=== PATIENT | female | born 1970 | race Caucasian/White ===

== ENCOUNTER → 2017-03-27 | Outpatient (CLI) | payer MEDICAID | LOC: FIMAGING 09:38 | PROVIDERS: ATTEND Family Medicine | DX: R19.00 Intra-abdominal and pelvic swelling, mass and lump, unspecified site (principal); N83.292 Other ovarian cyst, left side ==

== ENCOUNTER 2017-04-12 06:41 | Day surgery (SDC) | payer MEDICAID ==
--- NOTE | 2017-04-12 02:18 | GHP ---
[f rep st] PREOP HISTORY AND PHYSICAL REASON FOR ADMISSION: Primary hyperparathyroidism. HISTORY OF PRESENT ILLNESS: 46-year-old female with primary hyperparathyroidism. She is being admitted today for a parathyroidectomy. PAST MEDICAL HISTORY: Nephrolithiasis. PAST SURGICAL HISTORY: Benign ovarian cystectomy, pediatric bladder reconstruction. MEDICATIONS: Probiotics, apple cider vinegar, naturopathic "Review Coordinator" for kidneys. ALLERGIES: No known drug allergies. SOCIAL HISTORY: Three cigarettes per day. Occasional alcohol. 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 FAMILY HISTORY: Noncontributory. PHYSICAL EXAM: VITAL SIGNS: Afebrile, blood pressure 100/72, pulse 80. GENERAL: The patient is alert, appropriate, comfortable. EYES: Anicteric. LYMPHATIC: No cervical or supraclavicular lymphadenopathy. HEART: Regular. LUNGS: Clear. NECK: Nontender, without appreciable mass or adenopathy. ABDOMEN: Soft, nontender, nondistended. EXTREMITIES: Unremarkable. NEUROLOGIC: Unremarkable. LABORATORY DATA: Calcium 13.6, PTH 578, TSH 1.3. Vitamin D 43, creatinine 0.8. IMPRESSION: Primary hyperparathyroidism. Suspect right lower neck adenoma. PLAN: Parathyroidectomy with intraoperative PTH monitoring. Surgical risks and benefits were explained to the patient in detail, including bleeding, infection, persistent and recurrent hyperparathyroidism, hypoparathyroidism, recurrent laryngeal nerve injury, indications for 4-gland resection, hungry bone syndrome, and potential malignant findings given the large tumor size noted on preoperative ultrasound and extreme calcium and PTH elevation. All questions were answered. She desires to proceed. /[id number]/MODL MTDD
[~2017-04-12 06:41] MED LIST: LR 1,000 ML IV ONE; NS 1,000 ML IV ONE
[2017-04-12] MEDS ORDERED: BUPIVACAINE/EPI 0.5% 30 ML SDV ONE (07:12)
--- NOTE | 2017-04-12 07:13 | PDANEPAE ---
ANE History of Present Illness 46 year old female presents for parathyroidectomy. ANE Past Medical History - Cardiovascular History Hx Hypertension: No Hx Arrhythmias: No Hx Chest Pain: No Hx Coronary Artery / Peripheral Vascular Disease: No Hx CHF / Valvular Disease: No Hx Palpitations: No - Pulmonary History Hx COPD: No Hx Asthma/Reactive Airway Disease: No Hx Recent Upper Respiratory Infection: No Hx Oxygen in Use at Home: No Hx Sleep Apnea: No Sleep Apnea Screening Result - Last Documented: Negative - Neurologic History Hx Cerebrovascular Accident: No Hx Seizures: No Hx Dementia: No - Endocrine History Hx Diabetes: No Hypothyroid: No Hyperthyroid: No Obesity: no Endocrine History Comment: hyperparathyroidism - Renal History Hx Renal Disorders: Yes Renal History Comment: passing blood in urine - Liver History Hx Hepatic Disorders: No - Neurological & Psychiatric Hx Hx Neurological and Psychiatric Disorders: No - Cancer History Hx Cancer: No - Congenital Disorder History Hx Congenital Disorders: No - GI History GERD: no Hx Gastrointestinal Disorders: No - Other Health History Other Health History: none - Chronic Pain History Chronic Pain: No - Surgical History Prior Surgeries: . justine ANE Review of Systems - Exercise capacity Exercise capacity: >=4 METS METS (RN): 5 METS ANE Patient History - Allergies Allergies/Adverse Reactions: No Known Allergies Allergy (Verified 04/11/17 18:44) - Home Medications Home medications: home medication list seen and reviewed Home Medications: NK [No Known Home Meds] 02/02/16 [Last Taken Unknown] - NPO status NPO Status: no food or drink >8 hours NPO Since - Liquids (Date): 04/12/17 NPO Since - Liquids (Time): 04:30 NPO Since - Solids (Date): 04/11/17 NPO Since - Solids (Time): 21:00 - Anes Hx Anes Hx: no prior problems - Smoking Hx Smoking Status: Light smoker Marijuana use: Yes - Alcohol Use Alcohol Use: Rarely - Family Anes Hx Family Anes Hx: neg - N/A ANE Labs/Vital Signs - Vital Signs Vital Signs: reviewed preoperatively; see RN documention for details Blood Pressure: 98/66 Heart Rate: 74 Respiratory Rate: 16 O2 Sat (%): 98 Height: 157.48 cm Weight: 56.699 kg ANE Physical Exam - Airway Neck exam: decreased ROM (limited extension) Mallampati Score: Class 3 (limited by small mouth opening) Mouth exam: small mouth opening - Pulmonary Pulmonary: no respiratory distress - Cardiovascular Cardiovascular: regular rate and rhythym - ASA Status ASA Status: II ANE Anesthesia Plan Anesthesia Plan: general endotracheal anesthesia Total IV Anesthesia: No
[2017-04-12] MEDS ORDERED: MIDAZOLAM 2 MG/2 ML VIAL IVP ONE (07:30)
[2017-04-12] MEDS ORDERED: fentaNYL 100 MCG/2 ML INJ ONE ×3 (07:35→10:35)
[2017-04-12] MEDS ORDERED: PROPOFOL 200 MG/20 ML VIAL ONE (07:35)
[2017-04-12] MEDS ORDERED: ROCURONIUM 50 MG/5 ML VIAL ONE (07:35)
[2017-04-12] MEDS ORDERED: LIDOCAINE 2% 5 ML SDV ONE (07:35)
[2017-04-12] MEDS ORDERED: SUCCINYLCHOLINE CHLORIDE*ANESTHESIA ONLY*200 MG/10 ML SYR IVP ONE (07:40)
[2017-04-12] MEDS ORDERED: ONDANSETRON 4 MG/2 ML VIAL ONE ×2 (07:41→11:38)
[2017-04-12] MEDS ORDERED: DEXAMETHASONE 4 MG/ML VIAL ONE (07:41)
--- NOTE | 2017-04-12 08:07 | PDHPUP ---
History & Physical Update H&P update statement: This history and physical update is based on an assessment of the patient which was completed after admission or registration (within 24 hours), but prior to the surgery/procedure. H&P update: H&P reviewed & patient examined, no change in patient's condition since H&P completed
[2017-04-12] MEDS ORDERED: KETOROLAC 30 MG/1 ML SDV ONE (08:31)
[2017-04-12] MEDS ORDERED: HYDROCODONE/APAP 5/325 TAB PO PRN (08:47)
[2017-04-12] MEDS ORDERED: ONDANSETRON 4 MG/2 ML VIAL IVP PRN (08:47)
[2017-04-12] MEDS ORDERED: NALOXONE HCL 0.4 MG/ML INJ IVP PRN (08:47)
[2017-04-12] MEDS ORDERED: LR 500 ML IV PRN (08:47)
--- NOTE | 2017-04-12 09:33 | POSTOPPROG ---
Post Op Note Date of Operation: 04/12/17 Surgeon: Kasi Harper Anesthesiologist: Aneudy Odonnell Anesthesia: GET(General Endotracheal) Pre-op Diagnosis: Primary Hyperparathyroidism Post-op Diagnosis: Same Procedure: Parathyroidectomy with ioPTH Findings: Large right lower neck adenoma Inf/Abcess present in the surg proc area at time of surgery?: No EBL: Minimal Specimen(s): right lower neck biopsy
[2017-04-12] MEDS: fentaNYL 100 MCG/2 ML INJ IVP PRN ×2 (10:36→10:43)
[2017-04-12 10:59] VITALS: TEMP 98.4
[2017-04-12 11:06] LABS: CALCIUM 12.2 mg/dL (8.5-10.4); CREATININE 0.8 mg/dL (0.6-1.0)
[2017-04-12 11:58] VITALS: BP 90/62; PULSE 62; RESP 14; O2SAT 100
--- NOTE | 2017-04-12 13:35 | POSTANESTH ---
Post Anesthetic Evaluation Cardiovascular Status: Normal, Stable Respiratory Status: Normal, Stable Level of Consciousness/Mental Status: Can Participate in Eval Pain Control: Adequate, Prn Tx Ordered Nausea/Vomiting Control: Adequate, Prn Tx Ordered Complications Possibly Related to Anesthesia: None Noted
--- NOTE | 2017-04-12 17:10 | GOP ---
[f rep st] OPERATIVE REPORT DATE OF OPERATION: 04/12/2017 SURGEON: Kasi Harper MD ANESTHESIA: General. ANESTHESIOLOGIST: Aneudy Odonnell M.D. PREOPERATIVE DIAGNOSIS: Primary hyperparathyroidism. POSTOPERATIVE DIAGNOSIS: Primary hyperparathyroidism. PROCEDURE PERFORMED: Parathyroidectomy with intraoperative PTH monitoring. FINDINGS: Large right lower neck clinical adenoma. INDICATIONS: 46-year-old female with symptomatic primary hyperparathyroidism. Preoperative ultrasonography shows a 4 cm right lower neck suspect adenoma. Preoperative PTH values are approximately 600 with a calcium of 13.5. She is undergoing surgical intervention at this time. Risks and benefits were explained of bleeding, infection, persistent and recurrent hyperparathyroidism, hypoparathyroidism, recurrent laryngeal nerve injury, hungry bone syndrome, need for additional surgical intervention. All questions were answered. She desires to proceed. DESCRIPTION OF PROCEDURE: General anesthesia was induced. The neck was injected with 1% lidocaine along the lower midline supraclavicular region, as well as along bilateral sternocleidomastoid muscles. A low collar incision was created. The platysma muscle was divided transversely. The midline strap muscles were vertically. The right hemineck cavity was initially unroofed. The thyroid lobe appeared normal. As suggested on preoperative ultrasonography, there was a large 4 cm soft clinical parathyroid adenoma. This was easily dissected away from the surrounding fibrofatty tissues, as well as alongside the medial aspect of the carotid artery. There was no discoloration to the lesion or firmness to suggest malignancy. The mass was dissected back to its feeding vasculature, which was encased within the thyroid capsule. The gland was removed intact and sent for permanent sectioning. Further neck exploration disclosed a normal-appearing upper pole parathyroid gland sitting just inferior to the recurrent laryngeal nerve and just above the crossing of the inferior thyroid artery in normal location. The contralateral neck was explored. In mirror image locations, just at the lowermost aspect of the thyroid capsule and just below the nerve/muscle junction were soft, pliable , normal appearing parathyroid glands at these locations. Satisfactory hemostasis was assured throughout the neck, and the wound was closed in layers with absorbable suture followed by Dermabond. Preoperative PTH was 579. Five, ten, and fifteen minute values were 106, 175, and 99. The patient was taken to PACU awake in satisfactory condition. Postoperative lab was obtained in Recovery Room measuring 74. /[id number]/MODL MTDD
== END 2017-04-12 12:18 | disposition home or self-care (01) ==
LOC: FSGY 06:41
PROVIDERS: ATTEND Surgery
PROC: 0GBR0ZZ Excision of Parathyroid Gland, Open Approach (ICD-10-PCS; principal; 2017-04-12 08:00)
DX: E21.0 Primary hyperparathyroidism (principal)
CPT/HCPCS: J0330; J1100; J1885; J2250; J2405; J2704; J3010

== ENCOUNTER 2017-05-22 07:52 | Day surgery (SDC) | payer MEDICAID ==
[2017-05-22] MEDS ORDERED: DEXMEDETOMIDINE HCL 200 MCG in NS 50 ML IV ONE (09:30)
[2017-05-22] MEDS ORDERED: NS 1,000 ML IV SCH (09:30)
[2017-05-22 09:43] LABS: % IMMATURE GRANULYOCYTES 0.2 % (0.0-1.1); ABSOLUTE IMMATURE GRANULOCYTES 0.01 10^3/uL (0.00-0.10); ADD DIFF? NO; ADD MORPH? NO; ADD SCAN? NO; ATYPICAL LYMPHOCYTE FLAG 20 (0-99); FRAGMENT RBC FLAG 0 (0-99); HEMATOCRIT 31.6 % (38.0-47.0); HEMOGLOBIN 10.6 g/dL (12.6-16.3); LEFT SHIFT FLG 0 (0-99); LIPEMIA HEMOLYSIS FLAG 80 (0-99); MEAN CELL HEMOGLOBIN 27.4 pg (27.9-34.1); MEAN CELL HEMOGLOBIN CONCENTR. 33.5 g/dL (32.4-36.7); MEAN CELL VOLUME 81.7 fL (81.5-99.8); MEAN PLATELET VOLUME 10.2 fL (8.7-11.7); PLATELET CLUMPS FLAG 0 (0-99); PLATELET COUNT 130 10^3/uL (150-400); RED BLOOD CELL COUNT 3.87 10^6/uL (4.18-5.33); RED CELL DISTRIBUTION WIDTH 13.2 % (11.5-15.2)
[2017-05-22 09:52] LABS: APTT 29.6 SEC (23.0-38.0); INR 1.16 (0.83-1.16); PROTIME(PATIENT) 14.8 SEC (12.0-15.0)
[2017-05-22] MEDS ORDERED: fentaNYL 100 MCG/2 ML INJ ONE (10:01)
[2017-05-22] MEDS ORDERED: MIDAZOLAM 2 MG/2 ML VIAL ONE (10:02)
[2017-05-22 10:15] LABS: CREATININE 0.8 mg/dL (0.6-1.0); GLOMERULAR FILTRATION RATE > 60
[2017-05-22 12:17] VITALS: PULSE 47; TEMP 97.5; O2SAT 100
[2017-05-22] MEDS ORDERED: IOPAMIDOL (ISOVUE-300) 100 ML BTL ONE (12:18)
[2017-05-22] MEDS ORDERED: HYDROCODONE/APAP 5/325 TAB ONE ×2 (12:32→14:42)
[2017-05-22 12:37] VITALS: RESP 13
[2017-05-22] MEDS ORDERED: HYDROCODONE/APAP 5/325 TAB PO ONE ×2 (12:45→13:00)
[2017-05-22] MEDS ORDERED: ONDANSETRON 4 MG/2 ML VIAL ONE (14:30)
[2017-05-22] MEDS ORDERED: ONDANSETRON 4 MG/2 ML VIAL IVP PRN (14:39)
[2017-05-22] MEDS ORDERED: ACETAMINOPHEN 325 MG TAB PO PRN (14:39)
[2017-05-22 15:08] VITALS: BP 103/69
== END 2017-05-22 15:00 | disposition home or self-care (01) ==
LOC: FIMAGING 07:52
PROVIDERS: ATTEND Specialist
PROC: 0T9030Z Drainage of Right Kidney with Drainage Device, Percutaneous Approach (ICD-10-PCS; principal; 2017-05-22 11:50)
DX: N20.0 Calculus of kidney (principal); R55 Syncope and collapse; E21.3 Hyperparathyroidism, unspecified
CPT/HCPCS: 50432; 99152; C1729; C1769; J0696; J1644; J2250; J2405; J3010; Q9967

== ENCOUNTER 2017-05-23 06:28 | Inpatient (IN) | payer MEDICAID ==
--- NOTE | 2017-05-22 17:54 | GHP ---
[f rep st] PREOP HISTORY AND PHYSICAL DATE OF ADMISSION: 05/23/2017 HISTORY OF PRESENT ILLNESS: This is a 46-year-old lady who has bilateral staghorn calculi secondary to hyperparathyroidism. She has had treatment for hyperparathyroidism. At the present time she is a dmitted for percutaneous nephrostolithotomy. She has a 4 x 4.5 x 2 cm stone on the right side and a 2 x 2 x 0.9 cm stone in the left. She has had a percutaneous nephrostomy tube placed, and she is adm itted now for dilation of the tract and lithotripsy. Indication, complications and risks discussed. Options outlined. She is to undergo the above procedure. PAST MEDICAL HISTORY: Hepatitis, hypercalcemia, hyperparathyroidism, staghorn calculi. PAST SURGERIES: Bladder surgery and parathyroidectomy. MEDICATIONS: Include magnesium supplements and ibuprofen. ALLERGIES: No known allergies. FAMILY HISTORY: Positive for arthritis and hypertension. SOCIAL HISTORY: Moderate alcohol consumption, smoker. . REVIEW OF SYSTEMS: Negative cardiac, respiratory, GI. Endocrine is positive for the hyperparathyroi dism, treated. PHYSICAL EXAMINATION: VITAL SIGNS: Her blood pressure in the office was 102/66, heart rate 69 and r egular. O2 sat on room air 99%. BMI 20.77. HEAD/EYES/EARS/NOSE/THROAT: Normal. CHEST: Clear. HE ART: Regular rate and rhythm. ABDOMEN: Normal. No organomegaly, rebound, or guarding. LOWER EXTR EMITIES: Normal. PLAN: At the present time she is admitted for the percutaneous nephrostolithotomy. /[id number]/MODL
[2017-05-23] MEDS ORDERED: MIDAZOLAM 2 MG/2 ML VIAL IVP ONE (06:57)
--- NOTE | 2017-05-23 06:59 | PDANEPAE ---
ANE History of Present Illness here for perc nephrolithotomy ANE Past Medical History - Cardiovascular History Hx Hypertension: No Hx Arrhythmias: No Hx Chest Pain: No Hx Coronary Artery / Peripheral Vascular Disease: No Hx CHF / Valvular Disease: No Hx Palpitations: No - Pulmonary History Hx COPD: No Hx Asthma/Reactive Airway Disease: No Hx Recent Upper Respiratory Infection: No Hx Oxygen in Use at Home: No Hx Sleep Apnea: No Sleep Apnea Screening Result - Last Documented: Negative - Neurologic History Hx Cerebrovascular Accident: No Hx Seizures: No Hx Dementia: No - Endocrine History Hx Diabetes: No Endocrine History Comment: hyperparathyroidism - Renal History Hx Renal Disorders: No Renal History Comment: passing blood in urine - Liver History Hx Hepatic Disorders: No - Neurological & Psychiatric Hx Hx Neurological and Psychiatric Disorders: No - Cancer History Hx Cancer: No - Congenital Disorder History Hx Congenital Disorders: No - GI History GERD: no Hx Gastrointestinal Disorders: No - Other Health History Other Health History: none - Chronic Pain History Chronic Pain: No - Surgical History Prior Surgeries: . justine ANE Review of Systems Review of systems is: negative Review of Systems: - Exercise capacity Exercise capacity: >=4 METS METS (RN): 4 METS ANE Patient History - Allergies Allergies/Adverse Reactions: No Known Allergies Allergy (Verified 04/30/17 11:06) - Home Medications Home medications: home medication list seen and reviewed Home Medications: Acidophilus 05/21/17 [Last Taken Unknown] Multivitamin 05/21/17 [Last Taken Unknown] - NPO status NPO Status: no food or drink >8 hours - Anes Hx Anes Hx: no prior problems - Smoking Hx Smoking Status: Current some day smoker - Family Anes Hx Family Hx Anesthesia Complications: None ANE Labs/Vital Signs - Vital Signs Height: 157.48 cm Weight: 54.885 kg ANE Physical Exam - Airway Neck exam: FROM Mallampati Score: Class 1 Mouth exam: normal dental/mouth exam - Pulmonary Pulmonary: no respiratory distress - Cardiovascular Cardiovascular: regular rate and rhythym - ASA Status ASA Status: II ANE Anesthesia Plan Anesthesia Plan: general endotracheal anesthesia
[2017-05-23] MEDS ORDERED: MINERAL OIL 10 ML VIAL ONE (07:02)
[2017-05-23] MEDS ORDERED: IOPAMIDOL (ISOVUE-300) 100 ML BTL ONE (07:02)
[2017-05-23] MEDS ORDERED: LIDOCAINE 1% 2 ML INJ ID PRN (07:14)
[2017-05-23] MEDS ORDERED: LR 1,000 ML IV ONE (07:14)
[2017-05-23] MEDS ORDERED: ceFAZolin 2 GM/DEXTROSE 100 ML IV ONE (07:18)
[2017-05-23] MEDS ORDERED: PROPOFOL/EMULSION 500 MG/50 ML BOTTLE IV ONE (07:19)
[2017-05-23] MEDS ORDERED: fentaNYL 100 MCG/2 ML INJ ONE ×2 (07:20→09:49)
[2017-05-23] MEDS ORDERED: PROMETHAZINE HCL 25 MG/ML INJ IVP PRN (08:33)
[2017-05-23] MEDS ORDERED: DEXAMETHASONE 4 MG/ML VIAL IVP PRN (08:33)
[2017-05-23] MEDS ORDERED: ALBUTEROL 3 ML DEYVIAL IH PRN (08:33)
[2017-05-23] MEDS ORDERED: NS 500 ML IV PRN (08:33)
[2017-05-23] MEDS ORDERED: NALOXONE HCL 0.4 MG/ML INJ IVP PRN (08:33)
--- NOTE | 2017-05-23 11:26 | GOP ---
[f rep st] OPERATIVE REPORT DATE OF OPERATION: 05/23/2017 SURGEON: Raghav Morris MD PREOPERATIVE DIAGNOSIS: Right staghorn calculus secondary to hypercalciuria/calcemia secondary to hy perparathyroidism. POSTOPERATIVE DIAGNOSIS: PROCEDURE PERFORMED: FINDINGS: DESCRIPTION OF PROCEDURE: This lady after undergoing general anesthesia and being prepped and draped in normal sterile fashion, appropriate time-out, she had had access to the renal pelvis placed by Dr Charis Mclain, and then after that, I was able to use the nephroscope and the CyberWand and this large 4 c m staghorn calculus was fragmented and busted up with the CyberKnife, extracted several pieces with a 3 prong grasper. At the end of the procedure, there was no large stone burden identified in any of the kidney. There may have been some small fragments down the ureter that I elected not to try to ta ke the scope in and CyberWand those, did not want to disrupt the ureteropelvic junction. Then afterw ards, it appeared that we saw no radiographic evidence of any residual stones. She will have renal a ccess and ureteral access performed by Dr. Mclain and then plan admission overnight with serial hemat ocrits x2 and stone for analysis and nephrostogram tomorrow with potential discharge and the stent in place. She will need to have the treatment of the left renal pelvis staghorn in 2 weeks. /[id number]/MODL
[2017-05-23] MEDS: fentaNYL 100 MCG/2 ML INJ IVP PRN ×2 (11:44→11:53)
[2017-05-23 11:59] LABS: IONIZED CALCIUM 1.43 MMOL/L (1.12-1.30)
--- NOTE | 2017-05-23 11:59 | POSTANESTH ---
Post Anesthetic Evaluation Cardiovascular Status: Normal, Stable, Tx Over/Under Hydration Level of Consciousness/Mental Status: Mildly Sleepy, Arousable Pain Control: Adequate, Prn Tx Ordered Nausea/Vomiting Control: Adequate, Prn Tx Ordered Complications Possibly Related to Anesthesia: None Noted
[2017-05-23] MEDS: HYDROmorphONE/DILAUDID 1 MG/ML INJ IVP PRN ×3 (12:01→13:00)
[2017-05-23] MEDS ORDERED: ONDANSETRON DISINTEGRATING 4 MG TAB PO PRN (12:28)
[2017-05-23] MEDS ORDERED: ONDANSETRON 4 MG/2 ML VIAL IVP PRN (12:28)
[2017-05-23] MEDS: D5W 1/2 NS 1,000 ML IV SCH (13:25)
[2017-05-23] MEDS: OXYCODONE/APAP 5/325 TAB PO PRN ×3 (15:58→22:45)
[2017-05-24] MEDS: ZOLPIDEM TARTRATE 5 MG TAB PO PRN ×2 (00:17→22:51)
[2017-05-24] MEDS: OXYCODONE/APAP 5/325 TAB PO PRN ×4 (06:31→22:50)
[2017-05-24] MEDS: D5W 1/2 NS 1,000 ML IV SCH (10:19)
[2017-05-24 10:23] LABS: HEMATOCRIT 30.6 % (38.0-47.0); HEMOGLOBIN 9.8 g/dL (12.6-16.3); MEAN CELL HEMOGLOBIN 27.1 pg (27.9-34.1); MEAN CELL VOLUME 84.5 fL (81.5-99.8); RED BLOOD CELL COUNT 3.62 10^6/uL (4.18-5.33); RED CELL DISTRIBUTION WIDTH 13.4 % (11.5-15.2)
[2017-05-24 12:48] LABS: ANION GAP 8 mEq/L (8-16); CALCIUM 10.6 mg/dL (8.5-10.4); CARBON DIOXIDE 22 mEq/l (22-31); CHLORIDE 109 mEq/L (97-110); CREATININE 0.8 mg/dL (0.6-1.0); GLOMERULAR FILTRATION RATE > 60; GLUCOSE 71 mg/dL (70-100); POTASSIUM 3.5 mEq/L (3.5-5.2); SODIUM 139 mEq/L (134-144)
--- NOTE | 2017-05-24 13:08 | ASMTCMCOM ---
CM Note CM Note Notes: Spoke w/RN, anticipate pt will dc home independent when medically stable. CM available for any changes. Date Signed: 05/24/2017 01:07 PM Electronically Signed By:Wendi Nick RN
--- NOTE | 2017-05-24 13:50 | SOAPPROG ---
SOAP Progress Note Assessment/Plan: Assessment: Post op day 1 right PCNL Plan: Patient is not comfortable going home. Will keep her tonight for pain management. Likely d/c tomorrow. 05/24/17 13:49 Subjective: Uncomfortable going home Objective: Vital Signs Temp Pulse Resp BP Pulse Ox 36.7 C 93 20 97/67 L 98 05/24/17 11:40 05/24/17 11:40 05/24/17 11:40 05/24/17 11:40 05/24/17 11:40 Laboratory Results 05/24/17 10:11 05/24/17 10:11 05/23/17 05/24/17 05/25/17 05:59 05:59 05:59 Intake Total 3200 1123 Output Total 3955 1190 Balance -755 -67 Physical Exam - Physical Exam General Appearance: alert, no apparent distress Neck: normal inspection Respiratory: normal breath sounds Abdomen: other (right perc bag has clear urine) Skin: normal color Neuro/Psych: no motor/sensory deficits, alert ICD10 Worksheet Patient Problems: Problems Problem Status Onset Staghorn calculus Acute - ICD10 Problem Qualifiers (1) Staghorn calculus
[2017-05-24] MEDS ORDERED: IOPAMIDOL (ISOVUE-300) 100 ML BTL ONE (14:44)
[2017-05-24] MEDS: ACETAMINOPHEN 325 MG TAB PO PRN (19:46)
[2017-05-24] MEDS ORDERED: MAGNESIUM HYDROXIDE 30 ML UDCUP PO PRN (20:00)
[2017-05-24] MEDS ORDERED: LACTULOSE 20 GM/30 ML UDCUP PO PRN (20:00)
[2017-05-24] MEDS ORDERED: BISACODYL 10 MG SUPP PR PRN (20:00)
[2017-05-24] MEDS ORDERED: POLYETHYLENE GLYCOL 3350 17 GM PKT PO PRN (20:00)
[2017-05-24] MEDS: SENNOSIDES/DOCUSATE SODIUM TAB PO SCH (20:25)
[2017-05-24 22:05] VITALS: O2SAT 95
[2017-05-25 08:01] VITALS: BP 109/72; PULSE 86; RESP 18; TEMP 97.8
[2017-05-25] MEDS: ACETAMINOPHEN 325 MG TAB PO PRN (08:37)
[2017-05-25] MEDS: SENNOSIDES/DOCUSATE SODIUM TAB PO SCH (08:39)
--- NOTE | 2017-05-25 10:43 | SOAPPROG ---
SOAP Progress Note Assessment/Plan: Assessment: Staghorn calculus Acute POD 2, doing well, neph tube out and stent tolerated Plan: DC 05/25/17 10:42 Subjective: ready for dc Objective: Vital Signs Temp Pulse Resp BP Pulse Ox 36.6 C 86 18 109/72 95 05/25/17 07:59 05/25/17 07:59 05/25/17 07:59 05/25/17 07:59 05/25/17 07:59 Laboratory Results 05/24/17 10:11 05/24/17 10:11 05/24/17 05/25/17 05/26/17 05:59 05:59 05:59 Intake Total 3200 3711 500 Output Total 2150 3260 339 Banner -[phone] Physical Exam - Physical Exam General Appearance: alert Neck: full range of motion Respiratory: No respiratory distress Cardiac/Chest: regular rate, rhythm Back: No CVA tenderness Extremities: No calf tenderness Neuro/Psych: alert, oriented x 3 ICD10 Worksheet Patient Problems: Problems Problem Status Onset Staghorn calculus Acute
--- NOTE | 2017-05-25 14:07 | ASDISCHSUM ---
Discharge Information Plan Status:Home with No Needs Medically Cleared to Leave: Discharge Date:05/25/2017 12:23 PM CM D/C Disposition:Home, Routine, Self-Care ADT D/C Disposition:Home, Routine, Self-Care Projected Discharge Date:05/25/2017 12:23 PM Transportation at D/C: Discharge Delay Reason: Follow-Up Date:05/25/2017 12:23 PM Discharge Slot: Final Diagnosis: Placement Information Patient Contact Information Contact Name:MELISSA Relationship:Daughter Address: Home Phone: City: [facility] Phone: [facility]/Zip Code: Email: Financial Information Financial Class: Primary Plan Desc:[employer] Primary Plan Number:[id number] Secondary Plan Desc: Secondary Plan Number: Assessment Information [facility] CM Progress Note CM Note CM Note Notes: Spoke w/RN, anticipate pt will dc home independent when medically stable. CM available for any changes. Date Signed: 05/24/2017 01:07 PM Electronically Signed By:Wendi Nick RN Intervention Information
--- NOTE | 2017-05-25 15:16 | GDS ---
[f rep st] DISCHARGE SUMMARY ADMISSION DIAGNOSIS: Right staghorn calculus and left staghorn calculus. DISCHARGE DIAGNOSES: 1. Right staghorn calculus and left staghorn calculus. 2. Hypercalcemia. PROCEDURE: Right percutaneous nephrostolithotomy of staghorn calculus. HOSPITAL COURSE: This lady was admitted after having a percutaneous nephrostomy tube under general a nesthesia, and had a percutaneous nephrostolithotomy. Postop day 1, she had a nephrostogram that raudel wed minimal residual stone burden remaining, and the stent was in normal position with good drainage. Her nephrostomy tube was removed. She was discharged post postop day 2 to have followup with me in the office in 10 days. She will need stent removal and will need to address the left stone. She al so has hypercalcemia, related to hyperparathyroidism, and Dr. Harper is aware of this, and appropriate t esting has been ordered, and she has delayed that volitionally on her part. We have encouraged her t o have good followup with respect to that diagnosis. Further evaluation and treatment because her ri sk of having recurrent kidney stones with hypercalcemia secondary to hyperparathyroid is significant, and she appeared to understand that. /[id number]/MODL
[2017-05-27 18:10] LABS: SOURCE OF STONE RIGHT RENAL
[2017-05-27 18:12] LABS: NIDUS NOT OBSERVED
== END 2017-05-25 12:23 | disposition home or self-care (01) | DRG 941 ==
LOC: FSGY 06:28 → F3E 10:47 → OBSVTOIN 05-24 16:30
PROVIDERS: ADMIT Specialist; ATTEND Specialist
PROC: 0T767DZ Dilation of Right Ureter with Intraluminal Device, Via Natural or Artificial Opening (ICD-10-PCS; 2017-05-23)
PROC: 0TC08ZZ Extirpation of Matter from Right Kidney, Via Natural or Artificial Opening Endoscopic (ICD-10-PCS; principal; 2017-05-23 07:30)
PROC: 0TP530Z Removal of Drainage Device from Kidney, Percutaneous Approach (ICD-10-PCS; 2017-05-24)
DX: G89.18 Other acute postprocedural pain (principal); N20.0 Calculus of kidney; E21.3 Hyperparathyroidism, unspecified; Z72.0 Tobacco use
CPT/HCPCS: 82365-90; C1725; C1729; C1769; C1894; G0378; J0690; J1644; J2250; J2704; J3010; Q9967

== ENCOUNTER 2017-06-26 10:22 | Day surgery (SDC) | payer MEDICAID ==
[2017-06-26] MEDS ORDERED: PROTAMINE SULFATE 50 MG/5 ML VIAL IVP PRN (11:45)
[2017-06-26] MEDS ORDERED: NS 1,000 ML IV SCH (11:45)
[2017-06-26] MEDS ORDERED: ALTEPLASE 2 MG VIAL IVP PRN (11:45)
[2017-06-26] MEDS ORDERED: GLUCAGON HCL 1 MG VIAL IVP PRN (11:45)
[2017-06-26] MEDS ORDERED: HEPARIN 10,000 UNIT/10 ML MDV IVP PRN (11:45)
[2017-06-26 12:16] VITALS: PULSE 72
[2017-06-26 12:24] LABS: % IMMATURE GRANULYOCYTES 0.3 % (0.0-1.1); ABSOLUTE IMMATURE GRANULOCYTES 0.02 10^3/uL (0.00-0.10); ADD DIFF? NO; ADD MORPH? NO; ADD SCAN? NO; ATYPICAL LYMPHOCYTE FLAG 20 (0-99); FRAGMENT RBC FLAG 0 (0-99); HEMATOCRIT 35.2 % (38.0-47.0); HEMOGLOBIN 11.5 g/dL (12.6-16.3); LEFT SHIFT FLG 0 (0-99); LIPEMIA HEMOLYSIS FLAG 80 (0-99); MEAN CELL HEMOGLOBIN 25.9 pg (27.9-34.1); MEAN CELL HEMOGLOBIN CONCENTR. 32.7 g/dL (32.4-36.7); MEAN CELL VOLUME 79.3 fL (81.5-99.8); MEAN PLATELET VOLUME 11.7 fL (8.7-11.7); PLATELET CLUMPS FLAG 0 (0-99); PLATELET COUNT 164 10^3/uL (150-400); RED BLOOD CELL COUNT 4.44 10^6/uL (4.18-5.33); RED CELL DISTRIBUTION WIDTH 14.1 % (11.5-15.2)
[2017-06-26 12:29] LABS: INR 1.05 (0.83-1.16); PROTIME(PATIENT) 13.6 SEC (12.0-15.0)
[2017-06-26 12:30] LABS: APTT 27.3 SEC (23.0-38.0)
[2017-06-26 12:44] LABS: ANION GAP 10 mEq/L (8-16); CALCIUM 11.3 mg/dL (8.5-10.4); CARBON DIOXIDE 23 mEq/l (22-31); CHLORIDE 107 mEq/L (97-110); CREATININE 0.8 mg/dL (0.6-1.0); GLOMERULAR FILTRATION RATE > 60; GLUCOSE 82 mg/dL (70-100); POTASSIUM 4.1 mEq/L (3.5-5.2); SODIUM 140 mEq/L (134-144)
[2017-06-26] MEDS ORDERED: MIDAZOLAM 2 MG/2 ML VIAL IVP ONE (12:53)
--- NOTE | 2017-06-26 12:53 | PDANEPAE ---
ANE History of Present Illness 46 year old female w/ PMHx of hyperparathyroidism presents to IR for percutaneous nephrostomy tube. ANE Past Medical History - Cardiovascular History Hx Hypertension: No Hx Arrhythmias: No Hx Chest Pain: No Hx Coronary Artery / Peripheral Vascular Disease: No Hx CHF / Valvular Disease: No Hx Palpitations: No - Pulmonary History Hx COPD: No Hx Asthma/Reactive Airway Disease: No Hx Recent Upper Respiratory Infection: No Hx Oxygen in Use at Home: No Hx Sleep Apnea: No Sleep Apnea Screening Result - Last Documented: Negative - Neurologic History Hx Cerebrovascular Accident: No Hx Seizures: No Hx Dementia: No - Endocrine History Hx Diabetes: No Hypothyroid: No Hyperthyroid: No Obesity: no Endocrine History Comment: hyperparathyroidism - Renal History Hx Renal Disorders: Yes Renal History Comment: 05/23/17 Right Percutaneous nephrolithotomy has stent in place - Liver History Hx Hepatic Disorders: No - Neurological & Psychiatric Hx Hx Neurological and Psychiatric Disorders: No - Cancer History Hx Cancer: No - Congenital Disorder History Hx Congenital Disorders: No - GI History Hx Gastrointestinal Disorders: No - Other Health History Other Health History: none - Chronic Pain History Chronic Pain: No - Surgical History Prior Surgeries: 05/23/17 Right Percutaneous Nephrolithotomy. 04/12/17 parathyroid gland excised. appberta ANE Review of Systems Review of Systems: - Exercise capacity Exercise capacity: <4 METS METS (RN): 3 METS ANE Patient History - Allergies Allergies/Adverse Reactions: No Known Allergies Allergy (Verified 06/26/17 12:40) - Home Medications Home medications: home medication list seen and reviewed Home Medications: Herbals/Supplements -Info Only 1 mg PO DAILY 05/21/17 [Last Taken 06/24/17 09:00 ] Multivitamins [Multivitamin (*)] 1 tab PO DAILY 05/21/17 [Last Taken 06/24/17 10 :00] Advil 400 mg PO PRN 05/27/17 [Last Taken 06/25/17 00:00] - NPO status NPO Status: no food or drink >8 hours - Anes Hx Anes Hx: no prior problems - Smoking Hx Smoking Status: Former smoker - Alcohol Use Alcohol Use: Rarely - Family Anes Hx Family Anes Hx: neg - N/A Family Hx Anesthesia Complications: none ANE Labs/Vital Signs - Labs Result Diagrams: 06/26/17 12:10 06/26/17 12:10 - Vital Signs Vital Signs: reviewed preoperatively; see RN documention for details Blood Pressure: 97/65 Heart Rate: 72 Respiratory Rate: 14 O2 Sat (%): 96 Height: 157.48 cm Weight: 55.792 kg ANE Physical Exam - Airway Neck exam: FROM Mallampati Score: Class 2 Mouth exam: normal dental/mouth exam, dentures - Pulmonary Pulmonary: no respiratory distress - Cardiovascular Cardiovascular: regular rate and rhythym - ASA Status ASA Status: II ANE Anesthesia Plan Anesthesia Plan: general endotracheal anesthesia Total IV Anesthesia: No
[2017-06-26] MEDS ORDERED: PROPOFOL 200 MG/20 ML VIAL ONE (13:03)
[2017-06-26] MEDS ORDERED: fentaNYL 100 MCG/2 ML INJ ONE ×2 (13:03→15:12)
[2017-06-26] MEDS ORDERED: LIDOCAINE 2% 5 ML SDV ONE (13:07)
[2017-06-26] MEDS ORDERED: ROCURONIUM 100 MG/10 ML VIAL ONE (13:07)
--- NOTE | 2017-06-26 13:07 | PDPROPOC ---
Sedation Plan of Care Sedation Plan of Care: vital signs stable, mental status noted, patient educated of risks, benefits, alternatives, patient can tolerate sedation ASA Classification: ASA 1 Planned drugs: fentanyl, midazolam Mallampati Score: Class 2 Mallampati Reference Image: Patient passed 3-3-2 rule?: Yes
--- NOTE | 2017-06-26 13:10 | PDGENHP ---
History & Physical Chief Complaint: LT RENAL PERC NEPH FOR STONE History of Present Illness: S/P TREATMENT FOR STONES ON RT. NOW BACK FOR STONES ON LT. Pertinent Past, Social, Family History: LAST TIME PATIENT HAD A HARD TIME WTIH PROCEDURE. PATIENT BECAME HYPOTENSIVE AND WAS NOT A CANDIDATE FOR PRECEDEX. ANESTHESIA THOUGHT TO BE MORE APPROPRIATE FOR PATIENT. Relevant Physical Exam: HEALTHY. AWAKE AND ORIENTED. Cardiorespiratory Assessment: RRR, CTA
[2017-06-26] MEDS ORDERED: DEXAMETHASONE 4 MG/ML VIAL ONE (13:19)
[2017-06-26] MEDS ORDERED: ONDANSETRON 4 MG/2 ML VIAL ONE (13:19)
[2017-06-26] MEDS ORDERED: ONDANSETRON 4 MG/2 ML VIAL IVP PRN (13:57)
[2017-06-26] MEDS ORDERED: HYDROCODONE/APAP 5/325 TAB PO PRN (13:57)
[2017-06-26] MEDS ORDERED: OXYCODONE/APAP 5/325 TAB PO PRN (13:57)
[2017-06-26] MEDS ORDERED: NALOXONE HCL 0.4 MG/ML INJ IVP PRN (13:57)
[2017-06-26] MEDS ORDERED: LR 500 ML IV PRN (13:57)
[2017-06-26] MEDS ORDERED: SUGAMMADEX SODIUM 200 MG/2 ML VIAL IVP ONE (14:30)
[2017-06-26] MEDS ORDERED: IOPAMIDOL (ISOVUE-300) 100 ML BTL ONE (14:34)
--- NOTE | 2017-06-26 14:41 | PDRADPN ---
Radiology Procedure Note Date of Procedure: 06/26/17 Radiologist: Alivia Kellogg Anesthesiologist: Dr. Odonnell Anesthesia: GET(General Endotracheal) Pre-op Diagnosis: LT RENAL STONE Post-op Diagnosis: SAME Indication: PRE-OP STONE ACCESS Procedure: LT PERC NEPH Finding(s): UPPER POLE STONE, FULLY OBSTRUCTING UPPER POLE Inf/Abcess present in the surg proc area at time of surgery?: No EBL: Minimal Complications: NONE Drains: Nephrostomy (8FR.)
--- NOTE | 2017-06-26 15:07 | POSTANESTH ---
Post Anesthetic Evaluation Cardiovascular Status: Normal, Stable, Similar to Pre-Op Cond Respiratory Status: Normal, Stable, Similar to Pre-op Cond. Level of Consciousness/Mental Status: Can Participate in Eval, Alert and Oriented Pain Control: Adequate, Prn Tx Ordered Nausea/Vomiting Control: Adequate, Prn Tx Ordered Complications Possibly Related to Anesthesia: None Noted
[2017-06-26 15:10] VITALS: TEMP 98.1
[2017-06-26] MEDS: fentaNYL 100 MCG/2 ML INJ IVP PRN ×2 (15:15→15:20)
[2017-06-26] MEDS ORDERED: OXYCODONE/APAP 5/325 TAB ONE (16:07)
[2017-06-26 16:08] VITALS: RESP 15
[2017-06-26 16:42] VITALS: BP 121/79; O2SAT 100
== END 2017-06-26 16:48 | disposition home or self-care (01) ==
LOC: FIMAGING 10:22
PROVIDERS: ATTEND Specialist
PROC: 0T9130Z Drainage of Left Kidney with Drainage Device, Percutaneous Approach (ICD-10-PCS; principal; 2017-06-26 14:48)
DX: N20.0 Calculus of kidney (principal)
CPT/HCPCS: 50432; C1729; C1769; J0696; J1100; J1644; J2250; J2405; J2704; J3010; Q9967

== ENCOUNTER 2017-06-27 06:59 | Observation (INO) | payer MEDICAID ==
--- NOTE | 2017-06-26 17:57 | GHP ---
[f rep st] PREOP HISTORY AND PHYSICAL DATE OF ADMISSION: 06/27/2017 ADMISSION DIAGNOSIS: Left staghorn calculus. HISTORY OF PRESENT ILLNESS: This is a 46-year-old lady who has had bilateral staghorn calculi that o riginally started because of hyperparathyroidism and at the present time she is to have her left ston e taken out. She has had the right stone removed and she has been evaluated and treated by Dr. Leroy ca or the hyperparathyroidism and hypercalciuria/hypercalcemia. PAST MEDICAL HISTORY: Hepatitis, hypercalcemia, staghorn calculi, nephrolithiasis and hyperparathyro idism. PAST SURGERIES: Bladder surgery, parathyroidectomy and right PCNL. MEDICATIONS: Magnesium supplements. ALLERGIES: None. FAMILY HISTORY: Arthritis and hypertension. SOCIAL HISTORY: Moderate alcohol consumption, daily smoker. . IMMUNIZATIONS: Up to date. REVIEW OF SYSTEMS: Negative cardiac, respiratory, GI and endocrine is positive for the hyperparathyr oidism. PHYSICAL EXAMINATION: VITAL SIGNS: Stable. CHEST: Clear. HEART: Regular rate and rhythm. ABDOM EN: Normal. No organomegaly, rebound or guarding. LOWER EXTREMITIES: Normal. She is admitted for this procedure. She had the nephrostomy tube placed pre procedure in [facility]. /[id number]/MODL
[2017-06-27] MEDS ORDERED: LR 1,000 ML IV ONE (07:17)
[2017-06-27] MEDS ORDERED: IOPAMIDOL (ISOVUE-300) 100 ML BTL ONE (07:46)
[2017-06-27] MEDS ORDERED: MINERAL OIL 10 ML VIAL ONE (07:46)
--- NOTE | 2017-06-27 08:10 | PDANEPAE ---
ANE History of Present Illness 46 year old female w/ hyperparathyroidism and renal stones presents for percutaneous nephrolithotomy. ANE Past Medical History - Cardiovascular History Hx Hypertension: No Hx Arrhythmias: No Hx Chest Pain: No Hx Coronary Artery / Peripheral Vascular Disease: No Hx CHF / Valvular Disease: No Hx Palpitations: No - Pulmonary History Hx COPD: No Hx Asthma/Reactive Airway Disease: No Hx Recent Upper Respiratory Infection: No Hx Oxygen in Use at Home: No Hx Sleep Apnea: No Sleep Apnea Screening Result - Last Documented: Negative - Neurologic History Hx Cerebrovascular Accident: No Hx Seizures: No Hx Dementia: No - Endocrine History Hx Diabetes: No Hypothyroid: No Hyperthyroid: No Endocrine History Comment: hyperparathyroidism - Renal History Hx Renal Disorders: Yes Renal History Comment: 05/23/17 Right Percutaneous nephrolithotomy has stent in place - Liver History Hx Hepatic Disorders: No - Neurological & Psychiatric Hx Hx Neurological and Psychiatric Disorders: No - Cancer History Hx Cancer: No - Congenital Disorder History Hx Congenital Disorders: No - GI History Hx Gastrointestinal Disorders: No - Other Health History Other Health History: none - Chronic Pain History Chronic Pain: No - Surgical History Prior Surgeries: 05/23/17 Right Percutaneous Nephrolithotomy. 04/12/17 parathyroid gland excised. justine VORA Review of Systems Review of systems is: negative Review of Systems: - Exercise capacity Exercise capacity: >=4 METS METS (RN): 4 METS ANE Patient History - Allergies Allergies/Adverse Reactions: No Known Allergies Allergy (Verified 06/26/17 12:40) - Home Medications Home medications: home medication list seen and reviewed Home Medications: Multivitamins [Multivitamin (*)] 1 tab PO DAILY 05/21/17 [Last Taken 06/24/17 10 :00] RX: Herbals/Supplements -Info Only 1 mg PO DAILY 05/21/17 [Last Taken 06/24/17 09:00] Advil 400 mg PO PRN 05/27/17 [Last Taken 06/25/17 00:00] - NPO status NPO Status: no food or drink >8 hours NPO Since - Liquids (Date): 06/26/17 NPO Since - Solids (Date): 06/25/17 - Anes Hx Anes Hx: no prior problems - Smoking Hx Smoking Status: Former smoker - Alcohol Use Alcohol Use: Rarely - Family Anes Hx Family Anes Hx: neg - N/A Family Hx Anesthesia Complications: none ANE Labs/Vital Signs - Vital Signs Vital Signs: reviewed preoperatively; see RN documention for details Blood Pressure: 109/63 Heart Rate: 66 Respiratory Rate: 18 O2 Sat (%): 96 Height: 157.48 cm Weight: 54.885 kg ANE Physical Exam - Airway Neck exam: FROM Mallampati Score: Class 1 Mouth exam: normal dental/mouth exam - Pulmonary Pulmonary: no respiratory distress - Cardiovascular Cardiovascular: regular rate and rhythym - ASA Status ASA Status: II ANE Anesthesia Plan Anesthesia Plan: general endotracheal anesthesia Total IV Anesthesia: No
[2017-06-27] MEDS ORDERED: VANCOMYCIN HCL/NORMAL SALINE 250 ML IV ONE (08:49)
[2017-06-27] MEDS ORDERED: MIDAZOLAM 2 MG/2 ML VIAL IVP ONE (08:52)
[2017-06-27] MEDS ORDERED: PROPOFOL 200 MG/20 ML VIAL ONE (09:07)
[2017-06-27] MEDS ORDERED: ROCURONIUM 50 MG/5 ML VIAL ONE (09:07)
[2017-06-27] MEDS ORDERED: LIDOCAINE 2% 5 ML SDV ONE (09:07)
[2017-06-27] MEDS ORDERED: fentaNYL 100 MCG/2 ML INJ ONE ×2 (09:07→13:06)
[2017-06-27] MEDS ORDERED: ONDANSETRON 4 MG/2 ML VIAL ONE (09:13)
[2017-06-27] MEDS ORDERED: DEXAMETHASONE 4 MG/ML VIAL ONE (09:13)
[2017-06-27] MEDS ORDERED: PHENYLEPHRINE HCL 100 MCG/ML SYR ONE (09:56)
[2017-06-27] MEDS ORDERED: LR 500 ML IV PRN (10:16)
[2017-06-27] MEDS ORDERED: OXYCODONE/APAP 5/325 TAB PO PRN (10:16)
[2017-06-27] MEDS ORDERED: ONDANSETRON 4 MG/2 ML VIAL IVP PRN ×2 (10:16→11:42)
[2017-06-27] MEDS ORDERED: NALOXONE HCL 0.4 MG/ML INJ IVP PRN (10:16)
[2017-06-27] MEDS ORDERED: fentaNYL 100 MCG/2 ML INJ IVP PRN (10:16)
[2017-06-27] MEDS ORDERED: HYDROmorphONE/DILAUDID 1 MG/ML INJ IVP PRN (10:16)
[2017-06-27] MEDS ORDERED: SUGAMMADEX SODIUM 200 MG/2 ML VIAL IVP ONE (10:33)
[2017-06-27] MEDS ORDERED: ONDANSETRON DISINTEGRATING 4 MG TAB PO PRN (11:42)
[2017-06-27] MEDS ORDERED: ACETAMINOPHEN 325 MG TAB PO PRN (11:42)
[2017-06-27] MEDS ORDERED: D5W 1/2 NS 1,000 ML IV SCH (11:45)
--- NOTE | 2017-06-27 11:47 | POSTOPPROG ---
Post Op Note Date of Operation: 06/27/17 Surgeon: Raghav Morris Anesthesia: GET(General Endotracheal) Pre-op Diagnosis: stone Procedure: PCNL--dictated Inf/Abcess present in the surg proc area at time of surgery?: No EBL: 50-100 Drains: Nephrostomy Specimen(s): stone
[2017-06-27] MEDS ORDERED: HYDROmorphONE/DILAUDID 1 MG/ML INJ ONE (13:04)
[2017-06-27] MEDS: HYDROCODONE/APAP 5/325 TAB PO PRN ×2 (16:14→20:34)
--- NOTE | 2017-06-27 17:58 | GOP ---
[f rep st] OPERATIVE REPORT DATE OF OPERATION: 06/27/2017 SURGEON: Raghav Morris MD PREOPERATIVE DIAGNOSIS: Left staghorn calculus. POSTOPERATIVE DIAGNOSIS: Left staghorn calculus. PROCEDURE PERFORMED: Percutaneous nephrostolithotomy. FINDINGS: SPECIMENS: Stone sent for stone analysis. ESTIMATED BLOOD LOSS: Not possible to really delineate based on the type of procedure. DESCRIPTION OF PROCEDURE: After undergoing general anesthesia and being positioned appropriately, Dr Charis Mclain provided renal pelvis access to the stone, and then another time-out to confirm procedure wa s appropriate and I went in with the nephroscope. I identified the stone with the Cyber[employer]and and was able to fragment the stone and extract it. There were several fragments that were separate from the main stone that were extracted. At the end of the procedure, there appeared to be no significant per foration of the renal pelvis, there was no significant bleeding and there were no stones endoscopical ly or radiographically. She tolerated the procedure well. At that point, Dr. Mclain placed the appropriate tube drainage and we will admit her overnight for observation, have a nephrostogram tomorrow and if she is clear, she will go home without a ureteral stent or nephrostomy tube. /[id number]/MODL
[2017-06-28] MEDS: HYDROCODONE/APAP 5/325 TAB PO PRN ×3 (02:45→08:17)
[2017-06-28 05:19] LABS: % IMMATURE GRANULYOCYTES 0.5 % (0.0-1.1); ABSOLUTE IMMATURE GRANULOCYTES 0.02 10^3/uL (0.00-0.10); ADD DIFF? NO; ADD MORPH? NO; ADD SCAN? NO; ATYPICAL LYMPHOCYTE FLAG 0 (0-99); FRAGMENT RBC FLAG 0 (0-99); HEMATOCRIT 26.8 % (38.0-47.0); HEMOGLOBIN 8.6 g/dL (12.6-16.3); LEFT SHIFT FLG 0 (0-99); LIPEMIA HEMOLYSIS FLAG 80 (0-99); MEAN CELL HEMOGLOBIN 25.7 pg (27.9-34.1); MEAN CELL HEMOGLOBIN CONCENTR. 32.1 g/dL (32.4-36.7); MEAN CELL VOLUME 80.2 fL (81.5-99.8); MEAN PLATELET VOLUME 11.4 fL (8.7-11.7); PLATELET CLUMPS FLAG 10 (0-99); PLATELET COUNT 103 10^3/uL (150-400); RED BLOOD CELL COUNT 3.34 10^6/uL (4.18-5.33); RED CELL DISTRIBUTION WIDTH 14.4 % (11.5-15.2)
[2017-06-28 05:36] LABS: ALANINE AMINOTRANSFERASE 23 IU/L (9-52); ALKALINE PHOSPHATASE 61 IU/L (38-126); ANION GAP 9 mEq/L (8-16); ASPARTATE AMINOTRANSFERASE 17 IU/L (14-46); CALCIUM 10.2 mg/dL (8.5-10.4); CARBON DIOXIDE 22 mEq/l (22-31); CHLORIDE 107 mEq/L (97-110); CREATININE 0.8 mg/dL (0.6-1.0); GLOMERULAR FILTRATION RATE > 60; GLUCOSE 100 mg/dL (70-100); POTASSIUM 4.1 mEq/L (3.5-5.2); SODIUM 138 mEq/L (134-144); TOTAL PROTEIN 5.1 g/dL (6.3-8.2)
[2017-06-28 05:39] LABS: BILIRUBIN,TOTAL < 0.1 mg/dL (0.1-1.4)
[2017-06-28 07:58] VITALS: RESP 18; O2SAT 97
[2017-06-28] MEDS ORDERED: MULTIVITAMINS 1 EACH TAB PO SCH (09:00)
[2017-06-28] MEDS ORDERED: IOPAMIDOL (ISOVUE-300) 100 ML BTL ONE (09:55)
[2017-06-28 11:14] LABS: % IMMATURE GRANULYOCYTES 0.3 % (0.0-1.1); ABSOLUTE IMMATURE GRANULOCYTES 0.01 10^3/uL (0.00-0.10); ADD DIFF? NO; ADD MORPH? NO; ADD SCAN? NO; ATYPICAL LYMPHOCYTE FLAG 0 (0-99); FRAGMENT RBC FLAG 0 (0-99); HEMOGLOBIN 9.1 g/dL (12.6-16.3); LEFT SHIFT FLG 0 (0-99); LIPEMIA HEMOLYSIS FLAG 80 (0-99); MEAN CELL HEMOGLOBIN 26.1 pg (27.9-34.1); MEAN CELL HEMOGLOBIN CONCENTR. 32.5 g/dL (32.4-36.7); MEAN CELL VOLUME 80.2 fL (81.5-99.8); MEAN PLATELET VOLUME 11.7 fL (8.7-11.7); PLATELET CLUMPS FLAG 0 (0-99); PLATELET COUNT 115 10^3/uL (150-400); RED BLOOD CELL COUNT 3.49 10^6/uL (4.18-5.33); RED CELL DISTRIBUTION WIDTH 14.4 % (11.5-15.2)
--- NOTE | 2017-06-28 11:58 | ASMTCMCOM ---
CM Note CM Note Notes: Anticipate pt will have no DC needs. CM available if needs change. Date Signed: 06/28/2017 11:57 AM Electronically Signed By:Klaudia Tuttle LCSW
[2017-06-28 12:47] VITALS: BP 107/71; PULSE 90; TEMP 97.9
--- NOTE | 2017-06-28 15:42 | ASDISCHSUM ---
Discharge Information Plan Status: Medically Cleared to Leave: Discharge Date: CM D/C Disposition: ADT D/C Disposition: Projected Discharge Date: Transportation at D/C: Discharge Delay Reason: Follow-Up Date: Discharge Slot: Final Diagnosis: Placement Information Patient Contact Information Contact Name:MELISSA Relationship:Daughter Address: Home Phone: City: [facility] Phone: State/Zip Code: Email: Financial Information Financial Class:MD Primary Plan Desc:[employer] Primary Plan Number:[id number] Secondary Plan Desc: Secondary Plan Number: Assessment Information [facility] CM Progress Note CM Note CM Note Notes: Anticipate pt will have no DC needs. CM available if needs change. Date Signed: 06/28/2017 11:57 AM Electronically Signed By:Klaudia Tuttle LCSW Intervention Information
--- NOTE | 2017-06-28 20:34 | GDS ---
[f rep st] DISCHARGE SUMMARY PREOPERATIVE/POSTOPERATIVE DIAGNOSIS: Left staghorn calculus. Patient, after a discussion of options, underwent PCNL without difficulty. She is being discharged h ome in good condition without stent or nephrostomy tube. The patient is comfortable with discharge plan, will follow up with our office in 3 weeks. /[id number]/MODL
[2017-07-02 13:30] LABS: SOURCE OF STONE LEFT KIDNEY STONE
[2017-07-02 13:32] LABS: NIDUS NOT OBSERVED
== END 2017-06-28 15:45 | disposition home or self-care (01) ==
LOC: FSGY 06:59 → UNDOADMOB 11:42 → F3E 11:42 → F1N 13:46
PROVIDERS: ADMIT Specialist; ATTEND Specialist
PROC: 0TC18ZZ Extirpation of Matter from Left Kidney, Via Natural or Artificial Opening Endoscopic (ICD-10-PCS; principal; 2017-06-27 08:30)
DX: N20.0 Calculus of kidney (principal); E21.3 Hyperparathyroidism, unspecified; N80.0 Endometriosis of uterus
CPT/HCPCS: 50561; 74425; 74485; 75984; C1729; C1769; C1894; 82365-90; C1725; J1100; J1170; J1644; J2250; J2370; J2405; J2704; J3010; Q9967